=== PATIENT | female | born 1970 | race Caucasian/White ===

== ENCOUNTER → 2017-05-09 | Outpatient (CLI) | payer MEDICAID | LOC: CIMAGING 14:50 | DX: Z12.31 Encounter for screening mammogram for malignant neoplasm of breast (principal) ==

== ENCOUNTER → 2017-07-07 | Outpatient (CLI) | payer MEDICAID | LOC: BRMIMAGING 08:44 | DX: N64.59 Other signs and symptoms in breast (principal) | CPT/HCPCS: 76641-PO ==

== ENCOUNTER 2017-07-25 09:01 | Inpatient (IN) | payer MEDICAID ==
[2017-07-25 10:02] LABS: PLATELET COUNT 299 10^3/uL (150-400)
--- NOTE | 2017-07-25 10:11 | EDPHY ---
H & P Stated Complaint: facial numbness ?paralysis r face/ noticed prob with eye last night Time Seen by Provider: 07/25/17 10:10 HPI/ROS: HPI: This is a 47-year-old female who presents with Chief Complaint: facial numbness ?paralysis r face/ noticed prob with eye last night Location: right face Quality: Numbness and questionable paralysis Duration: Since last night Signs and Symptoms: no fever, no nausea, no vomiting, + photophobia, no noise sensitivity, no neck stiffness, no ear pain, no tinnitus, no nasal congestion, no sinus pressure, no weakness, no radiation, no aura Timing: Acute, resolved Severity: Moderate Context: Patient has a history of insulin-dependent diabetes mellitus, hypertension presents with with complaints last night of right eye twitching and questionable eye drooping around 7:00 p.m. That last 1 hr and self resolved. Last night this was noticed by patient's . Patient reports that she felt tired yesterday. She then woke up this morning around 7:30 a.m. And felt like she had difficulty swallowing her smoothie. She then noticed her left eye was twitching and she had a left facial droop. Patient reports that her blood sugars this morning were I 50 around 6:30 a.m.. She moved to [place] last year. Patient reports that all of her symptoms resolved around 9 a.m. While in the emergency room she is denying headache but reports photophobia. No history of migraines. Denies fever/weakness/radiation. Ambulating without difficulty. LMP 1-2 weeks ago. Modifying Factors: None Comment: ROS: see HPI Constitutional: No fever, no chills, no weight loss Eyes: No blurred vision Respiratory: No shortness of breath, no cough Cardiovascular: No chest pain, no palpitations Gastrointestinal: No nausea, no vomiting, no diarrhea, no hematemesis, no blood in stool Genitourinary: No dysuria, no blood in urine Extremities: No myalgias, no edema Neurologic: No weakness, no numbness Skin: No rashes, no petechiae Hematologic: No bruising, no bleeding MEDICAL/SURGICAL/SOCIAL HISTORY: Medical history: Insulin-dependent diabetes mellitus, hypertension Surgical history: Denies Social history: Family history noncontributory. CONSTITUTIONAL: Well-appearing middle-aged female, awake and alert, no obvious distress HEENT: Atraumatic and normocephalic, PERRL, EOMI. Nares patent; no rhinorrhea; no nasal mucosal edema. Tympanic membranes clear. Oropharynx clear, no exudate and moist pink mucosa. Airway patent. No lymphadenopathy. No meningismus. No reproducible temporal tenderness. Able to swallow water without difficulty. Cardiovascular: Normal S1/S2, regular rate, regular rhythm, without murmur rub or gallop. PULMONARY/CHEST: Symmetrical and nontender. Clear to auscultation bilaterally. Good air movement. No accessory muscle usage. ABDOMEN: Soft, nondistended, nontender, no rebound, no guarding, no peritoneal signs, no masses or organomegaly. No CVAT. EXTREMITIES: 2/2 pulses, strength 5/5, no deformities, no clubbing, no cyanosis or edema. NEUROLOGICAL: no focal neuro deficits. GCS 15. Cranial nerves 2-12 grossly intact. Normal cerebellar exam. Normal [id number]. Normal [id number]. SKIN: Warm and dry, no erythema. no rash. Good capillary refill. Source: Patient Exam Limitations: No limitations - Personal History LMP (Females 10-55): 8-14 Days Ago Current Tetanus Diphtheria and Acellular Pertussis (TDAP): No - Medical/Surgical History Hx Asthma: No Hx Chronic Respiratory Disease: No Hx Diabetes: Yes Hx Cardiac Disease: No Hx Renal Disease: No Hx Cirrhosis: No Hx Alcoholism: No Hx HIV/AIDS: No Hx Splenectomy or Spleen Trauma: No Other PMH: diabetic/htn - Social History Smoking Status: Never smoked Constitutional: Initial Vital Signs Temperature (C) 36.6 C 07/25/17 09:11 Heart Rate 84 07/25/17 09:11 Respiratory Rate 18 07/25/17 09:11 Blood Pressure 165/103 H 07/25/17 09:11 O2 Sat (%) 97 07/25/17 09:11 O2 Delivery Mode Room Air Allergies/Adverse Reactions: unknown Allergy (Uncoded 07/25/17 09:05) Home Medications: Medication Instructions Recorded Lantus Solostar 07/25/17 Metformin HCl 07/25/17 Trajenta 07/25/17 Medical Decision Making - Diagnostics Imaging Results: Imaging Impressions Cervical Spine X-Ray 07/25/17 10:19 Impression: No source for pain identified. Head CT 07/25/17 10:19 Impression: 1. There is no acute intracranial abnormality identified on this unenhanced CT evaluation. 2. 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 Findings and recommendations were discussed with Marely Bustamante PA-C at 11:29, on . She indicated that the patient was going to be admitted for TIA like symptoms. ED Course/Re-evaluation: Labs, head CT scan ordered. Vitals reviewed upon arrival; elevated blood pressure noted. Not a tPA candidate due to symptoms starting last night at 7:00 p.m. 1130: Called by radiologist, Dr. Damon, reports that head CT scan shows no acute intracranial process. Does show choroidal fissure cyst in the median sylvian fissure; recommends MR for further evaluation. Cervical x-ray my read shows no acute fracture/significant degenerative changes Labs reviewed: WBC 9.9, ESR 34, H&H 12.2/37.2-microcytic type; serum glucose 209 1135: ED decision to consult for admission for TIA. Spoke with hospitalist coordinator kindly agrees to accept patient for admission and further care. Be given to Dr. Fernandez. Neurology consult. Spoke with Dr. Palm who recommends CTA head and neck prior to admission to the floor. 1345: Called by Radiology, Dr. Damon, who advised that CTA head and neck showed no acute process. Spoke with patient and at bedside. Updated them on all radiology results and plan of care. This patient was seen under the supervision of my secondary supervising physician. I evaluated care for this patient independently. Discussed this patient with Dr. Luna who did not see the patient. Differential Diagnosis: Differential diagnosis includes but is not limited to migraine, temporal arteritis, TIA, CVA, Cho's palsy. - Data Points Laboratory Results: Laboratory Results 07/25/17 09:50 07/25/17 09:50 07/25/17 07/25/17 07/25/17 09:50 09:50 09:50 WBC RBC Hgb Hct 37.2 % L % (38.0-47.0) MCV MCH MCHC RDW Plt Count MPV Neut % (Auto) Lymph % (Auto) Crisp % (Auto) Eos % (Auto) Baso % (Auto) Nucleat RBC Rel Count Absolute Neuts (auto) Absolute Lymphs (auto) Absolute Monos (auto) Absolute Eos (auto) Absolute Basos (auto) Absolute Nucleated RBC Immature Gran % Immature Gran # ESR 34 MM/HR H MM/HR (0-20) PT 13.0 SEC SEC (12.0-15.0) INR 0.96 (0.83-1.16) APTT 28.1 SEC SEC (23.0-38.0) Sodium 140 mEq/L mEq/L (135-145) Potassium 4.2 mEq/L mEq/L (3.5-5.2) Chloride 101 mEq/L mEq/L (97-110) Carbon Dioxide 25 mEq/l mEq/l (22-31) Anion Gap 14 mEq/L mEq/L (8-16) BUN 11 mg/dL mg/dL (7-23) Creatinine 0.4 mg/dL L mg/dL (0.6-1.0) Estimated GFR > 60 Glucose 209 mg/dL H mg/dL (70-100) Calcium 9.7 mg/dL mg/dL (8.5-10.4) 07/25/17 09:50 WBC 9.94 10^3/uL H 10^3/uL (3.80-9.50) RBC 4.81 10^6/uL 10^6/uL (4.18-5.33) Hgb 12.2 g/dL L g/dL (12.6-16.3) Hct 37.2 % L % (38.0-47.0) MCV 77.3 fL L fL (81.5-99.8) MCH 25.4 pg L pg (27.9-34.1) MCHC 32.8 g/dL g/dL (32.4-36.7) RDW 15.1 % % (11.5-15.2) Plt Count 299 10^3/uL 10^3/uL (150-400) MPV 10.4 fL fL (8.7-11.7) Neut % (Auto) 71.3 % % (39.3-74.2) Lymph % (Auto) 16.6 % % (15.0-45.0) Crisp % (Auto) 4.8 % % (4.5-13.0) Eos % (Auto) 6.5 % % (0.6-7.6) Baso % (Auto) 0.4 % % (0.3-1.7) Nucleat RBC Rel Count 0.0 % % (0.0-0.2) Absolute Neuts (auto) 7.08 10^3/uL H 10^3/uL (1.70-6.50) Absolute Lymphs (auto) 1.65 10^3/uL 10^3/uL (1.00-3.00) Absolute Monos (auto) 0.48 10^3/uL 10^3/uL (0.30-0.80) Absolute Eos (auto) 0.65 10^3/uL H 10^3/uL (0.03-0.40) Absolute Basos (auto) 0.04 10^3/uL 10^3/uL (0.02-0.10) Absolute Nucleated RBC 0.00 10^3/uL 10^3/uL (0-0.01) Immature Gran % 0.4 % % (0.0-1.1) Immature Gran # 0.04 10^3/uL 10^3/uL (0.00-0.10) ESR PT INR APTT Sodium Potassium Chloride Carbon Dioxide Anion Gap BUN Creatinine Estimated GFR Glucose Calcium Medications Given: Discontinued Medications Morphine Sulfate (Morphine) 2 mg IVP ONCE ONE Stop: 07/25/17 12:09 Last Admin: 07/25/17 13:04 Dose: Not Given Departure - Departure Disposition: [facility] Clinical Impression: Cyst, fissural, IDDM (insulin dependent diabetes mellitus), Essential hypertension TIA (transient ischemic attack) Qualifiers: Transient cerebral ischemia type: unspecified Qualified Code(s): G45.9 - Transient cerebral ischemic attack, unspecified Condition: Fair
[2017-07-25 11:03] LABS: INR 0.96 (0.83-1.16)
[2017-07-25] MEDS ORDERED: IOPAMIDOL (ISOVUE 370) 100 ML BTL IV ONE (12:00)
[2017-07-25] MEDS ORDERED: ONDANSETRON 4 MG/2 ML VIAL IVP PRN (14:13)
[2017-07-25] MEDS ORDERED: ONDANSETRON DISINTEGRATING 4 MG TAB PO PRN (14:13)
[2017-07-25] MEDS ORDERED: KETOROLAC 30 MG/1 ML SDV ONE (14:16)
[2017-07-25] MEDS ORDERED: KETOROLAC 30 MG/1 ML SDV IVP ONE (14:16)
[2017-07-25] MEDS: D5W 1/2 NS 1,000 ML IV SCH (15:30)
[2017-07-25] MEDS ORDERED: HYDROmorphONE/DILAUDID 1 MG/ML INJ IVP PRN (15:59)
[2017-07-25] MEDS ORDERED: HYDROmorphONE/DILAUDID 2 MG TAB PO PRN (15:59)
[2017-07-25] MEDS ORDERED: IBUPROFEN 600 MG TAB PO PRN (16:00)
[2017-07-25] MEDS ORDERED: LIDOCAINE 1% 300 MG/30 ML SDV ONE (16:28)
--- NOTE | 2017-07-25 17:10 | PDGENHP ---
History and Physical - Chief Complaint Acute paresis - History of Present Illness PCP: Dr. Wilks HPI: 47 yo F p/w acute paresis characterized as R side facial palsy assoc w/ left facial painful paresthesia, subjective left upper extremity and left lower extremity paresthesia, dysphagia. Patient reports that approximately 2 weeks ago she began experiencing bilateral lower extremity paresis which was exacerbated on attempts to stand, getting out of the car, getting out of bed. She reports that this was associated with generalized fatigue as well as anterior sore throat. She reports that the symptoms persisted, and then on the evening prior to this presentation, her noticed that the right side of her mouth appeared to be weak as well as her left eyelid. She began experiencing headache located in the right posterior occiput and began experiencing some photophobia. She also had some reported twitching in that left eyelid. On the morning of this presentation, the patient awoke and around 7:30 a.m. She was experiencing the aforementioned symptoms, and she reports that she was having some difficulty swallowing her morning smoothie. She took her Synthroid, but felt like she was unable to take her other oral medications. She otherwise denies any fevers or chills, denies any neck stiffness, denies any cough or shortness of breath. She denies that these symptoms have ever been experienced in the past, outside of the past 2 weeks. History Information - Allergies/Home Medication List Allergies/Adverse Reactions: unknown Allergy (Uncoded 07/25/17 09:05) Home Medications: Acetaminophen [Tylenol 325mg (*)] 325 mg PO Q6 PRN 07/25/17 [Last Taken 07/23/17 ] Atorvastatin Calcium [Lipitor 10 mg (*)] 10 mg PO HS 07/25/17 [Last Taken ] Insulin Glargine [Lantus 100 UNITS/ML (*)] 42 units SC HS 07/25/17 [Last Taken 07/24/17] Linagliptin [Tradjenta] 5 mg PO DAILY 07/25/17 [Last Taken 07/25/17] Metoprolol Succinate Xr [Toprol Xl 25 mg (*)] 25 mg PO DAILY 07/25/17 [Last Taken 07/25/17] Tobramycin 0.3% [Tobrex 0.3% opht drops (*)] 1 drops OP Q4 07/25/17 [Last Taken Unknown] metFORMIN HCL [Glucophage 1000 mg] 1,000 mg PO BIDMEAL 07/25/17 [Last Taken ] I have personally reviewed and updated: family history, medical history, social history, surgical history - Past Medical History diabetes type 2, hypertension Additional medical history: Hypothyroidism - Surgical History Additional surgical history: Left ankle surgery - Family History Additional family history: No family history of any neurologic disorders, no family history of thymoma, no family history of meningitis or encephalitis - Social History Smoking Status: Never smoked Alcohol Use: None Drug Use: None Additional social history: She reports she is normally active in her ADLs, with recent reduction in exercise tolerance secondary to generalized fatigue over the past 2 weeks Review of Systems Review of Systems: ROS: 10pt was reviewed & negative except for what was stated in HPI & below Constitutional: Reports: weakness EENMT: Reports: sore throat, other (Dysphagia) Neurological: Reports: headache, other (Left-sided paresthesias, left facial paresthesia, right facial paresis) Physical Exam Physical Exam: Temp Pulse Resp BP Pulse Ox 37.0 C 80 19 154/84 H 95 07/25/17 14:28 07/25/17 14:28 07/25/17 14:28 07/25/17 14:28 07/25/17 14:28 Constitutional: no apparent distress, uncomfortable, No not in pain (Moderate left face) Eyes: PERRL, EOMI (But slow), No scleral injection Ears, Nose, Mouth, Throat: moist mucous membranes, hearing normal, ears appear normal, no oral mucosal ulcers Cardiovascular: regular rate and rhythym, no murmur, rub, or gallop, No edema Respiratory: no respiratory distress, no rales or rhonchi, clear to auscultation Gastrointestinal: normoactive bowel sounds, soft, non-tender abdomen, no palpable masses Skin: No abrasion, No rash Musculoskeletal: other (No meningismus, full range of motion of the neck) Neurologic: AAOx3, weakness (Right mouth palsy), CN II-XII Intact, No sensation intact bilaterally (Left upper and left lower extremity subjective paresthesias , left facial paresthesia) Psychiatric: not encephalopathic, anxious, No agitated Lab Data & Imaging Review 07/25/17 09:50 07/25/17 09:50 WBC 9.94 10^3/uL (3.80-9.50) H 07/25/17 09:50 RBC 4.81 10^6/uL (4.18-5.33) 07/25/17 09:50 Hgb 12.2 g/dL (12.6-16.3) L 07/25/17 09:50 Hct 37.2 % (38.0-47.0) L 07/25/17 09:50 MCV 77.3 fL (81.5-99.8) L 07/25/17 09:50 MCH 25.4 pg (27.9-34.1) L 07/25/17 09:50 MCHC 32.8 g/dL (32.4-36.7) 07/25/17 09:50 RDW 15.1 % (11.5-15.2) 07/25/17 09:50 Plt Count 299 10^3/uL (150-400) 07/25/17 09:50 MPV 10.4 fL (8.7-11.7) 07/25/17 09:50 Neut % (Auto) 71.3 % (39.3-74.2) 07/25/17 09:50 Lymph % (Auto) 16.6 % (15.0-45.0) 07/25/17 09:50 Pickett % (Auto) 4.8 % (4.5-13.0) 07/25/17 09:50 Eos % (Auto) 6.5 % (0.6-7.6) 07/25/17 09:50 Baso % (Auto) 0.4 % (0.3-1.7) 07/25/17 09:50 Nucleat RBC Rel Count 0.0 % (0.0-0.2) 07/25/17 09:50 Absolute Neuts (auto) 7.08 10^3/uL (1.70-6.50) H 07/25/17 09:50 Absolute Lymphs (auto) 1.65 10^3/uL (1.00-3.00) 07/25/17 09:50 Absolute Monos (auto) 0.48 10^3/uL (0.30-0.80) 07/25/17 09:50 Absolute Eos (auto) 0.65 10^3/uL (0.03-0.40) H 07/25/17 09:50 Absolute Basos (auto) 0.04 10^3/uL (0.02-0.10) 07/25/17 09:50 Absolute Nucleated RBC 0.00 10^3/uL (0-0.01) 07/25/17 09:50 Immature Gran % 0.4 % (0.0-1.1) 07/25/17 09:50 Immature Gran # 0.04 10^3/uL (0.00-0.10) 07/25/17 09:50 ESR 34 MM/HR (0-20) H 07/25/17 09:50 PT 13.0 SEC (12.0-15.0) 07/25/17 09:50 INR 0.96 (0.83-1.16) 07/25/17 09:50 APTT 28.1 SEC (23.0-38.0) 07/25/17 09:50 Sodium 140 mEq/L (135-145) 07/25/17 09:50 Potassium 4.2 mEq/L (3.5-5.2) 07/25/17 09:50 Chloride 101 mEq/L (97-110) 07/25/17 09:50 Carbon Dioxide 25 mEq/l (22-31) 07/25/17 09:50 Anion Gap 14 mEq/L (8-16) 07/25/17 09:50 BUN 11 mg/dL (7-23) 07/25/17 09:50 Creatinine 0.4 mg/dL (0.6-1.0) L 07/25/17 09:50 Estimated GFR > 60 07/25/17 09:50 Glucose 209 mg/dL (70-100) H 07/25/17 09:50 Calcium 9.7 mg/dL (8.5-10.4) 07/25/17 09:50 Visualized and Interpreted imaging results: Yes Interpretation: Head CT demonstrating some insist, no intracranial hemorrhage Assessment & Plan Assessment: 47-year-old female presents with acute paresthesias and paresis 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 Acute, with multifocal paresthesias and paresis, ascending, progressing into bulbar symptoms with dysphagia -discussed with Dr. Rodriguez Palm, neurology consultation appreciated, he and I both concern for any atypical Guillain-Lafayette presentation with ascending symptoms, progressing up to the bulbar area, placing the patient at risk for respiratory compromise -will rule out meningeal encephalitis with lumbar puncture, sending CSF for HSV and VZV -will evaluate brain MRI with and without contrast to rule out CVA, rule out any brain mass -will get lumbar spine MRI given the patient's recent back pain as well as lower extremity findings including absent reflexes -discussed with ICU charge nurse and respiratory therapist, will place the patient step-down unit, close monitoring, q.1 hour negative inspiratory force monitoring tonight -will give the patient IVIG -patient is high risk for worsening neurologic status and potential intubation 2. Diabetes mellitus type 2. Hyperglycemia on presentation, the patient requires swallow evaluation prior to dye order, will hold diabetic treatment until she is able to swallow 3. Hypertension. Chronic, continue patient's home medications once able to take p.o. Diet. NPO until swallow eval, then diabetic thereafter Prophylaxis. High risk patient given weakness and immobility, Lovenox for Code. Full Disposition. Anticipated discharge uncertain this time, anticipated length stay is greater than 48 hr warranting inpatient admission status for acutely worsening suspected Guillain-Lafayette syndrome, placing patient at high risk for worsening morbidity and/or mortality with critical illness secondary to evolving neurologic symptoms and potential respiratory compromise. Specifically addressing the issue, spent 60 min of critical care time spent with this patient at bedside, coordinating care with Dr. Palm, ICU, respiratory therapy.
[2017-07-25] MEDS ORDERED: D50W 25 GM/50 ML SYR IVP PRN (17:18)
[2017-07-25] MEDS ORDERED: NS 1,000 ML IV SCH (17:30)
--- NOTE | 2017-07-25 17:43 | PDMN ---
Medical Necessity Medical necessity: C/M review: est. > 2 MN LOS for eval and TX of acute possible Guillan-Davenport syndrome with multifocal paresthesias and paresis, ascending, progressing in to bulbar symptoms and dysphagia, patient is high risk for worsening neurologic status and potential intubation, requiring neurology consult, planned lumbar puncture - sending CSF for HSV and VZV, brain MRI, lumbar spine MRI, Dietary consult, Case Management consult, ongoing IVIG, IV fluids, close monitoring, Q 1 hr. inspiratory force monitoring, cardiac monitoring, pulse oximetry, acute inpt PT/OT/ST in SDU, comorbid type 2 diabetes , hypertension per H/P.
[2017-07-25] MEDS ORDERED: metFORMIN HCL 500 MG TAB PO SCH (18:00)
[2017-07-25] MEDS ORDERED: NON-FORMULARY NEW DRUG (Metformin Hcl [Glucophage 1000 Mg] 1,000 MG) PO SCH (18:00)
--- NOTE | 2017-07-25 18:47 | GCON ---
[f rep st] CONSULTATION DATE OF CONSULTATION: 07/25/2017 REFERRING PHYSICIAN: Dhruv Brooks MD CHIEF COMPLAINT: Multiple neurologic symptoms. HISTORY OF PRESENT ILLNESS: The patient is a very pleasant 47-year-old lady who has a past medical history of diabetes, thyroid problems, and hypertension. On July 14, she had unexplained low back pain, and began with weakness in her lower extremities that has been progressive. Then 2 days ago she began having right-sided facial weakness and then left-sided facial tingling, which brought her to the ED. She was evaluated with a head CT without contrast, which showed a likely benign finding of a left sylvian fissure choroidal fissure cyst. Otherwise, no acute abnormality. She had a CTA of the head and neck as well, which showed no acute findings. There is no significant stenosis in her internal carotid arteries or vertebral arteries. Intracranial circulation is negative. She has had no recent illnesses that she knows of. No tick bites. No animal bites. No recent illnesses or other toxic exposures that she is aware of. She was in her usual state of health. She did have also sensations in the back of her throat this morning with problems swallowing. No shortness of air that she reports or dyspnea. No orthopnea. REVIEW OF SYSTEMS: A review of systems was done including a 10-point review which was only pertinent to the HPI. For past medical history, social history, family history, home medications, and allergies, please see Dr. Brooks's history and physical dated July 25, 2017. PHYSICAL EXAMINATION: VITAL SIGNS: Blood pressure is elevated at 154/84, temperature 36.6, heart rate 70s. O2 saturation is 97% on room air. GENERAL: The patient is pleasant in no acute distress at baseline, just resting comfortably on room air. She has no dyspnea with walking. She had no shortness of air either. On higher mental function exam, she is awake and alert , lucid. No aphasia. On cranial nerve exam, she has a lower motor neuron 7th nerve weakness on the right. On the left, she has some tingling and numbness in the 5th nerve trigeminal nerve distribution. Tongue is midline. Extraocular movements are full. Pupils are reactive bilaterally and symmetric. On motor exam, she does not have any weakness with formal testing of each muscle, but does have some giveaway weakness due to pain in her back, mainly in the low back. She is areflexic throughout. Toes are mute bilaterally. Coordination is normal. Gait is slow, but nonataxic at this point. IMPRESSION AND PLAN: 1. Low back pain. 2. Areflexia. 3. Cranial nerve deficits. The patient is presenting with a constellation of neurological signs and symptoms presenting in a subacute fashion over the last ~ 2 weeks. These symptoms and signs are progressive. This subacute course is certainly could be consistent with an inflammatory process. She does not have any signs and symptoms of infection at this point. Her white count is 9.94. She is afebrile. She denies any sick contacts, animal exposure, insect bites, etc. Guillain-Lockhart syndrome is on the differential diagnosis. We discussed at length. Other differential diagnoses such as cerebrovascular disease / multifocal strokes, atypical Lyme disease, rabies, other infectious process or inflammatory disorders were discussed. She has no personal history of cancer to suggest paraneoplastic syndromes. As she is having dysphagia this morning, I am concerned about potential respiratory failure in the setting of possible Guillain-Lockhart syndrome. We are going to transfer her to the intensive care unit for close respiratory monitoring. We can monitor her forced vital capacity, her expiratory and inspiratory pressure -- per respiratory therapy parameters q.1 hour. If they meet threshold for intubation, she will then need intubation for impending respiratory failure, if that were to occur. We will check IgA level, sedimentation rate, CK, myasthenia gravis panel, MRI brain with without contrast , lumbar spine MRI with and without contrast. We will check a lumbar puncture to see if she has elevated protein with relatively normal cells to fit with acute inflammatory demyelinating polyneuropathy/Guillain-Lockhart syndrome. Because the suspicion is fairly high at this point, and she is progressing, we will go ahead and initiate therapy with IVIG. I did herb counselor the patient on potential risks, benefits, alternatives of IVIG, including hyperviscosity syndrome including stroke, heart attack, renal failure and anaphylaxis (as her IgA status is unknown now). She will be hydrated and be given premedications. She has no known allergies that she knows of. We will give her the standard IVIG dosing for Guillain- Lockhart syndrome of 0.4 g/kg per day for 5 days. We can discontinue this medication if an alternative diagnosis becomes obvious over the course of her hospitalization. She will be watched closely in ICU for any respiratory, autonomic, general neurologic changes or compromise. We will follow along closely. DVT, GI prophylaxis discussed with hospital medicine. We also discussed monitoring of respiratory functions, cardiovascular and autonomic function. Please do not hesitate to call with any change in neurologic status with this patient. We appreciate the consultation. We will follow up on all of the above. seventy total minutes of floor time and reviewing the patient's clinical history, neurologic exam, inpatient records, coordination of care with other providers. /[id number]/MODL MTDD
[2017-07-25] MEDS: INSULIN REGULAR HUMAN 100 UNIT/ML UNIT SC SCH ×2 (20:10→23:51)
[2017-07-25] MEDS: KETOROLAC 30 MG/1 ML SDV IVP PRN (20:20)
[2017-07-25] MEDS ORDERED: INSULIN GLARGINE 42 UNIT SC SCH (21:00)
[2017-07-25] MEDS ORDERED: INSULIN GLARGINE 100 UNITS/ML UNIT SC SCH (21:00)
[2017-07-25] MEDS ORDERED: GADOBUTROL 10 ML VIAL IVP ONE (21:14)
[2017-07-25] MEDS: ATORVASTATIN CALCIUM 10 MG TAB PO SCH (22:13)
[2017-07-25] MEDS: diphenhydrAMINE 50 MG CAP PO SCH (22:13)
[2017-07-25] MEDS: IMMUNE GLOBULIN 20 GM/200 ML VIAL IV SCH (22:13)
[2017-07-25] MEDS: ACETAMINOPHEN 325 MG TAB PO SCH (22:13)
[2017-07-25] MEDS: GABAPENTIN 100 MG CAP PO SCH ×2 (22:13→22:36)
[2017-07-25] MEDS: IMMUNE GLOBULIN 5 GM/50 ML VIAL IV SCH (22:14)
[2017-07-25] MEDS: IMMUNE GLOBULIN 10 GM/100 ML VIAL IV SCH (22:14)
[2017-07-26] MEDS: TOBRAMYCIN 0.3% 5 ML OPHT.BTL OP SCH ×8 (01:05→21:36)
[2017-07-26] MEDS: KETOROLAC 30 MG/1 ML SDV IVP PRN ×2 (02:50→14:15)
[2017-07-26 05:25] LABS: PLATELET COUNT 260 10^3/uL (150-400)
[2017-07-26] MEDS: INSULIN REGULAR HUMAN 100 UNIT/ML UNIT SC SCH ×4 (08:30→21:35)
[2017-07-26] MEDS ORDERED: (Linagliptin [Tradjenta] 5 MG) PO SCH (09:00)
[2017-07-26] MEDS ORDERED: METOPROLOL SUCCINATE XR 25 MG TAB PO SCH (09:00)
[2017-07-26] MEDS: diphenhydrAMINE 50 MG CAP PO SCH (09:17)
[2017-07-26] MEDS: ACETAMINOPHEN 325 MG TAB PO SCH (09:17)
[2017-07-26] MEDS: GABAPENTIN 100 MG CAP PO SCH (09:17)
[2017-07-26] MEDS ORDERED: ACETAMINOPHEN 650 MG SUPP PR SCH (09:45)
[2017-07-26] MEDS ORDERED: HYDROmorphone HCL/NS 0.5 MG/ML SYR IVP PRN (10:25)
[2017-07-26] MEDS: D5W 1/2 NS 1,000 ML IV SCH (10:26)
[2017-07-26] MEDS: ENOXAPARIN 40 MG/0.4 ML SYR SC SCH (10:41)
[2017-07-26] MEDS: IMMUNE GLOBULIN 20 GM/200 ML VIAL IV SCH (10:47)
[2017-07-26] MEDS: IMMUNE GLOBULIN 5 GM/50 ML VIAL IV SCH (11:03)
[2017-07-26] MEDS: IMMUNE GLOBULIN 10 GM/100 ML VIAL IV SCH (11:03)
--- NOTE | 2017-07-26 11:49 | GCON ---
[f rep st] CONSULTATION CRITICAL CARE CONSULTATION DATE OF CONSULTATION: 07/26/2017 HISTORY OF PRESENT ILLNESS: This patient is a 47-year-old female with a history of diabetes, hyperli pidemia, and hypertension, who was admitted yesterday with concerns for Guillain-[place] syndrome. She has a fairly complicated story of pain issues, some of which having occurred intermittently over an unclear period of time. A couple weeks ago she was complaining of lower extremity pain, which she travis s had intermittently and is unable to walk. She described some sciatica-type symptoms, but no clear paresthesias at that time. She started having worsening pain, went to a chiropractor, and that got b chata and resolved. Then, in the last few days, she said she started having right upper extremity pa in, only sort of in her elbow to her proximal wrist, but not in her fingertips. She also was having post-auricular pain behind her right ear that was nonspecific. She said it was sharp at 1st and then more diffuse and dull. In any case, this was intermittent. On the of admission, she was having matt e dysphagia and noticed a facial droop, she said on the left, and came to the hospital with those com plaints. She was seen in the emergency department and also by Internal Medicine as well as Neurology . There were some concerns about Guillain-Mil[place] syndrome, so she was given a dose of IV IG at that t nraa. Today she says her symptoms are essentially unchanged, and her workup has been nondiagnostic up to this point. REVIEW OF SYSTEMS: Otherwise negative. PAST MEDICAL HISTORY: Includes hyperlipidemia, hypothyroidism, diabetes, and hypertension. PAST SURGICAL HISTORY: Includes remote left ankle surgery. MEDICATIONS: At this time include Lipitor, Benadryl, Lovenox Neurontin, Dilaudid p.r.n., Motrin p.r. n., IV IG, insulin sliding scale, Toradol, metoprolol, and tobramycin drops. PHYSICAL EXAMINATION: VITAL SIGNS: She has been afebrile. Blood pressure 148/73, heart rate 76, re spirations 20, oxygen saturation 96% in room air. CONSTITUTIONAL: Somewhat anxious but able to spea k in full sentences without using accessory muscles for breathing. HEENT: Pupils equally round and reactive to light, anicteric, and noninjected. Extraocular movements were intact and normal. No nys tagmus. Mucous membranes moist without erythema or exudate. NECK: Supple, without adenopathy or ju gular vein distention. LUNGS: Breath sounds clear to auscultation bilaterally without wheezes, rubs , or rales. HEART: Regular rate and rhythm and rhythm without obvious murmur. ABDOMEN: Soft, nont anette, nondistended without hepatosplenomegaly. EXTREMITIES: No clubbing, cyanosis, or edema. She did appear to be weaker on the left than the right in both upper and lower extremities in the nature of about 3 to 4+ strength on the left and 5/5 on the right. She did appear to have a right-sided fac ial droop, particularly while smiling, but no other obvious cranial nerve abnormalities. SKIN: Othe rwise warm and dry, without evidence of rash. OBJECTIVE DATA: Includes an MRI of her brain (which shows an area of atypical demyelination, an old lacunar infarct, and a tiny schwannoma) and an LP that shows no evidence of meningitis at this time. Her white count was 9.9 when she arrived and is 8.2 now. Hematocrit is 34. Platelets were normal. Basic metabolic panel was normal. Hemoglobin A1c is pending. TSH was 0.402. Multiple other labs a re pending. ASSESSMENT AND PLAN: 1. Acute facial droop, which sounds more consistent with stroke (in a patient who is at risk for vas cular disease) than Guillain-Milroy. Would certainly defer to our neurologic colleagues whose experti se weighed the risks and benefits of IV IG, with which I agree, so she will continue that for now unt il some of her other labs are done. She should continue to work with PT/OT and have a swallow study. Her negative inspiratory force on multiple testing has been at least -30. We can probably switch t hat to daily since she denies any shortness of breath and is in room air at this time. We will [place] to monitor her closely for any progression of disease. 2. Diabetes. As long as she is n.p.o., she should get only half of her NPH, unless she resumes a no rmal diet after her study, in which case she can take her normal dose. Otherwise, will keep her on a sliding scale moving forward. /[id number]/MODL
--- NOTE | 2017-07-26 12:50 | HOSPPROG ---
Hospitalist Progress Note Assessment/Plan: 47-year-old female new to my care 07/26 presents with right facial weakness as well as subacute generalized weakness #weakness unclear diagnosis, but agree with treating for possible Guillain- [place] syndrome. -case discussed with Dr. Rodriguez Palm continue workup and IVIG -change to SDU status # microcytic anemia -will send iron studies since this could potentially be a cause of her generalized weakness -monitor for bleeding and repeat CBC in the morning # suppressed TSH -no obvious physical exam findings consistent with thyrotoxicosis or Graves disease. Will send free T3 and T4 levels as well as a thyroid stimulating immunoglobulin #. Diabetes mellitus type 2. Hyperglycemia on presentation, the patient requires swallow evaluation prior to dye order, will hold diabetic treatment until she is able to swallow #. Hypertension. Chronic, continue patient's home medications once able to take p.o. Diet. NPO until swallow eval, then diabetic thereafter Prophylaxis. High risk patient given weakness and immobility, Lovenox for Code. Full Disposition. Continue inpatient care given unclear diagnosis and persistent weakness Subjective: Patient continues to have generalized weakness. She feels worse today. She denies any shortness of breath. Objective: Vital Signs Temp Pulse Resp BP Pulse Ox 36.8 C 78 18 143/76 H 95 07/26/17 12:00 07/26/17 12:00 07/26/17 12:00 07/26/17 12:00 07/26/17 12:00 Microbiology 07/25/17 18:30 Respiratory Panel (PCR) - Final Nasal, Sinus - Swab Human Rhinovirus/Enterovirus Laboratory Results 07/26/17 05:00 07/26/17 05:00 07/25/17 07/26/17 07/27/17 05:59 05:59 05:59 Intake Total 871 Output Total 350 Balance 521 PT 13.0 SEC (12.0-15.0) 07/25/17 09:50 INR 0.96 (0.83-1.16) 07/25/17 09:50 - Physical Exam Constitutional: no apparent distress, appears nourished, not in pain Cardiovascular: regular rate and rhythym, no murmur, rub, or gallop Respiratory: no respiratory distress, no rales or rhonchi, clear to auscultation Neurologic: AAOx3, CN II-XII Intact, facial droop (Right side including the forehead), other (DTRs diminished at the patella and Achilles) Psychiatric: interacting appropriately, not anxious, not encephalopathic, thought process linear ICD10 Worksheet Patient Problems: Problems Problem Status Onset Cyst, fissural Acute Essential hypertension Acute IDDM (insulin dependent diabetes mellitus) Acute TIA (transient ischemic attack) Acute
--- NOTE | 2017-07-26 13:20 | NEUROPROG ---
Assessment: 1. Right facial droop, lower motor neuron distribution 2. Low back pain with subjective lower extremity weakness 3. Areflexia MRI brain does not show any acute infarcts. There may be a very tiny schwannoma on the right. Not clear. No clear-cut abnormalities to explain the constellation of signs and symptoms on MRI brain . MRI lumbar spine did not show any enhancing lesions CSF exam was essentially normal. No elevated white cells. Normal protein Labs are coming back normal or negative. Many labs are pending. Right facial droop seems more prominent this morning. She passed swallow study The differential diagnosis still includes AIDP, other possibilities include viral syndrome with Cho's palsy and diffuse myalgias. 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 Going forward please discontinue all opiate pain medications for her neuropathic pain. I will start gabapentin 300 mg p. O. Three times daily as she passed her swallow test. 2. We will continue close autonomic, cardiovascular and Respiratory monitoring for any impending respiratory failure 3. Continue GI and DVT prophylaxis 4. We will complete IVIG course for 5 days at this point as we have no other alternate diagnosis to definitively explain the entire clinical picture. Today is 2/5 of IVIG The neurology service will continue to closely follow this patient. 35 total minutes on the floor reviewing interim labs, counseling the patient and coordination of care Subjective: Neuropathic pain behind right ear Objective: Vital Signs Temp Pulse Resp BP Pulse Ox 36.8 C 78 18 143/76 H 95 07/26/17 12:00 07/26/17 12:00 07/26/17 12:00 07/26/17 12:00 07/26/17 12:00 Microbiology 07/25/17 18:30 Respiratory Panel (PCR) - Final Nasal, Sinus - Swab Human Rhinovirus/Enterovirus Laboratory Results 07/26/17 05:00 07/26/17 05:00 07/25/17 07/26/17 07/27/17 05:59 05:59 05:59 Intake Total 871 Output Total 350 Balance 521 PT 13.0 SEC (12.0-15.0) 07/25/17 09:50 INR 0.96 (0.83-1.16) 07/25/17 09:50 Awake and alert She passed a swallow study in my presence Right facial weakness in upper and lower face There was some 1+ reflex present in the brachioradialis bilaterally otherwise she is areflexic Allergies/Adverse Reactions: unknown Allergy (Uncoded 07/25/17 09:05)
--- NOTE | 2017-07-26 15:20 | ASMTCMCOM ---
CM Note CM Note Notes: Pt has been admitted with possible Guillain [place] syndrome and started on IVIG. PT pending, OT recommending Inpt rehab at this time. She passed swallow eval today. Pt lives with her and 9 yo. CM will follow for any d/c needs. Date Signed: 07/26/2017 03:19 PM Electronically Signed By:DUKE Cervantes
[2017-07-26] MEDS: GABAPENTIN 300 MG CAP PO SCH ×2 (16:36→21:35)
[2017-07-26] MEDS: METOPROLOL SUCCINATE XR 25 MG TAB PO SCH (17:08)
[2017-07-26] MEDS: ATORVASTATIN CALCIUM 10 MG TAB PO SCH (21:35)
[2017-07-26] MEDS: INSULIN GLARGINE 100 UNITS/ML UNIT SC SCH (21:35)
[2017-07-27] MEDS: TOBRAMYCIN 0.3% 5 ML OPHT.BTL OP SCH ×6 (02:10→21:32)
[2017-07-27] MEDS: KETOROLAC 30 MG/1 ML SDV IVP PRN ×3 (06:43→19:27)
[2017-07-27] MEDS: INSULIN REGULAR HUMAN 100 UNIT/ML UNIT SC SCH ×4 (07:36→21:31)
[2017-07-27] MEDS: LEVOTHYROXINE 125 MCG TAB PO SCH (08:21)
[2017-07-27] MEDS: METOPROLOL SUCCINATE XR 25 MG TAB PO SCH (08:22)
[2017-07-27] MEDS: GABAPENTIN 300 MG CAP PO SCH ×3 (08:22→21:31)
[2017-07-27] MEDS: ACETAMINOPHEN 325 MG TAB PO SCH (08:22)
[2017-07-27] MEDS: ENOXAPARIN 40 MG/0.4 ML SYR SC SCH (08:23)
[2017-07-27] MEDS: diphenhydrAMINE 50 MG CAP PO SCH (08:23)
[2017-07-27] MEDS: IMMUNE GLOBULIN 20 GM/200 ML VIAL IV SCH (08:34)
[2017-07-27] MEDS: IMMUNE GLOBULIN 10 GM/100 ML VIAL IV SCH (08:34)
[2017-07-27] MEDS: IMMUNE GLOBULIN 5 GM/50 ML VIAL IV SCH (08:35)
--- NOTE | 2017-07-27 09:45 | PDINTPN ---
[employer] Administrator Progress Note Assessment/Plan: Assessment/plan: 47 F admitted 07/25 with DM, HTN, HLD, c/o new onset facial droop in setting of confusing array of pain complaints and dysfunction without clear ascending paralysis, but enough to raise concerns about Guillan [place]. MRI negative for acute CVA; no TPA given. LP unremarkable for infection or elevated protein. Started IVIG with no immediate change, though she reported worsening facial droop 07/26. Bedside NIF has been > -30 on multiple measurements and no subjective dyspnea. * [place] palsy related to rhinovirus versus GB. Agree that benefit>risk in terms of GB treatment and will get 5 days as recommended by neurology. Largely supportive care and will monitor daily NIF for now * DM- maintaining glucose, HbA1c pending Subjective: feels her facial symptoms are worse today Objective: Vital Signs Temp Pulse Resp BP Pulse Ox 36.6 C 84 16 149/81 H 97 07/27/17 04:00 07/27/17 08:22 07/27/17 08:00 07/27/17 08:22 07/27/17 08:00 Laboratory Results 07/26/17 05:00 07/26/17 05:00 07/26/17 07/27/17 07/28/17 05:59 05:59 05:59 Intake Total 871 2592 Output Total 350 1500 400 Balance 521 1092 -400 PT 13.0 SEC (12.0-15.0) 07/25/17 09:50 INR 0.96 (0.83-1.16) 07/25/17 09:50 Physical Exam - Physical Exam General Appearance: WD/WN, alert, no apparent distress, obese EENT: PERRL/EOMI Neck: supple Respiratory: lungs clear, normal breath sounds, No respiratory distress, No accessory muscle use Cardiac/Chest: regular rate, rhythm, No edema Abdomen: non-tender, soft, No distended Skin: normal color, warm/dry, No cyanosis, No rash Lymphatic: no adenopathy Extremities: No pedal edema Neuro/Psych: alert, normal mood/affect, oriented x 3, abnormal twist maker II-XII ( RIGHT SIDED FACIAL PARESIS; MILD LUE/LLE WEAKNESS; NORMAL RUE/RLE) ICD10 Worksheet Patient Problems: Problems Problem Status Onset Cyst, fissural Acute Essential hypertension Acute IDDM (insulin dependent diabetes mellitus) Acute TIA (transient ischemic attack) Acute
--- NOTE | 2017-07-27 12:45 | HOSPPROG ---
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 -continue IVIG -consider transfer to med/surg if cleared by neurology #tearfulness ?depression which is denies by the patient -cont to monitor and consider SSRI if pt agreeable # microcytic anemia (no signs of bleeding nml iron studies) # suppressed TSH (iatrogenic) -recommend outpatient monitoring of thyroid replacement #. Diabetes mellitus type 2. -a1c pending -cont metformin and correctional insulin as ordered #. Hypertension. Chronic, continue patient's home medications once able to take p.o. Diet. ada Prophylaxis. High risk patient given weakness and immobility, Lovenox for Code. Full Disposition. Continue inpatient care given unclear diagnosis and persistent weakness Subjective: reports persistent facial weakness as well as generalized weakness. no fever. denies depression. has been sleeping and eating without problems. Objective: Vital Signs Temp Pulse Resp BP Pulse Ox 36.6 C 84 16 149/81 H 97 07/27/17 04:00 07/27/17 08:22 07/27/17 08:00 07/27/17 08:22 07/27/17 08:00 Laboratory Results 07/26/17 05:00 07/26/17 05:00 07/26/17 07/27/17 07/28/17 05:59 05:59 05:59 Intake Total 871 2592 240 Output Total 350 1500 800 Balance 521 1092 -560 PT 13.0 SEC (12.0-15.0) 07/25/17 09:50 INR 0.96 (0.83-1.16) 07/25/17 09:50 - Physical Exam Ears, Nose, Mouth, Throat: moist mucous membranes, hearing normal, ears appear normal, no oral mucosal ulcers Cardiovascular: regular rate and rhythym, no murmur, rub, or gallop Respiratory: no respiratory distress, no rales or rhonchi, clear to auscultation Gastrointestinal: normoactive bowel sounds, soft, non-tender abdomen, no palpable masses Neurologic: CN II-XII Intact (with the exception of cn 7 weakness unable to raise brow on right with associated rt facial droop. able to close left eye) Psychiatric: interacting appropriately, anxious, flat affect ICD10 Worksheet Patient Problems: Problems Problem Status Onset TIA (transient ischemic attack) Acute Cyst, fissural Acute IDDM (insulin dependent diabetes mellitus) Acute Essential hypertension Acute
--- NOTE | 2017-07-27 15:49 | NEUROPROG ---
Assessment: 1. Right facial weakness, lower motor neuron distribution 2. Low back pain with subjective lower extremity weakness 3. Areflexia MRI brain does not show any acute infarcts. There may be a very tiny schwannoma on the right. Not clear. No clear-cut abnormalities to explain the constellation of signs and symptoms on MRI brain . The MRI finding may be consistent with Cho's palsy rather than a schwannoma. MRI lumbar spine did not show any enhancing lesions CSF exam was essentially normal. No elevated white cells. Normal protein Labs are coming back normal or negative. Many labs are pending. The differential diagnosis still includes AIDP, other possibilities include viral syndrome with Cho's palsy and diffuse myalgias. 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 gabapentin 300 mg p. O. Three times daily 2. We will continue close autonomic, cardiovascular and Respiratory monitoring for any impending respiratory failure 3. Continue GI and DVT prophylaxis 4. We will complete IVIG course for 5 days at this point as we have no other alternate diagnosis to definitively explain the entire clinical picture. Today is 3/5 of IVIG 5. I will sign out this very pleasant patient to my colleague Dr. Olmos. 6. I will plan on seeing her as an outpatient in 3 months to repeat a brain MRI with and without contrast 7. If the end diagnosis best fits with typical Cho's palsy (not Guillain-[place] syndrome) - recommendations include eye care and outpatient ophthalmology follow -up. She was counseled today at length at regarding protecting her eye with eyedrops and the risk of corneal abrasion. 35 total minutes on the floor reviewing interim labs, counseling the patient and coordination of care Subjective: No new complaints Objective: Vital Signs Temp Pulse Resp BP Pulse Ox 36.6 C 84 16 149/81 H 97 07/27/17 04:00 07/27/17 12:15 07/27/17 08:00 07/27/17 12:15 07/27/17 12:15 Laboratory Results 07/26/17 05:00 07/26/17 05:00 07/26/17 07/27/17 07/28/17 05:59 05:59 05:59 Intake Total 871 2592 240 Output Total 350 1500 800 Balance 521 1092 -560 PT 13.0 SEC (12.0-15.0) 07/25/17 09:50 INR 0.96 (0.83-1.16) 07/25/17 09:50 Right facial weakness, lower motor neuron distribution, appears to be more prominent again I tested power in all 4 extremities today and could not find any weakness. She remains areflexic Allergies/Adverse Reactions: unknown Allergy (Uncoded 07/25/17 09:05)
[2017-07-27] MEDS: ACETAMINOPHEN 325 MG TAB PO PRN ×2 (18:16→22:14)
[2017-07-27] MEDS: ATORVASTATIN CALCIUM 10 MG TAB PO SCH (21:31)
[2017-07-27] MEDS: INSULIN GLARGINE 100 UNITS/ML UNIT SC SCH (21:31)
[2017-07-27] MEDS: DOCUSATE SODIUM 100 MG CAP PO SCH (21:31)
[2017-07-27] MEDS ORDERED: NITROGLYCERIN 0.4 MG BTL SL PRN (22:55)
[2017-07-27] MEDS ORDERED: LORazepam 1 MG TAB ONE (23:02)
[2017-07-27] MEDS: LORazepam 0.5 MG TAB PO PRN (23:09)
[2017-07-28] MEDS: TOBRAMYCIN 0.3% 5 ML OPHT.BTL OP SCH ×6 (02:19→22:16)
[2017-07-28] MEDS: KETOROLAC 30 MG/1 ML SDV IVP PRN ×3 (02:40→19:38)
[2017-07-28] MEDS: LEVOTHYROXINE 125 MCG TAB PO SCH (05:16)
[2017-07-28] MEDS: ACETAMINOPHEN 325 MG TAB PO PRN ×2 (06:26→21:36)
--- NOTE | 2017-07-28 08:57 | CPEKG ---
Heart Rate: 77 RR Interval: 779 P-R Interval: 144 QRSD Interval: 76 QT Interval: 396 QTC Interval: 449 P [place]: 55 QRS [place]: 54 T Wave [place]: 44 EKG Severity - BORDERLINE ECG - EKG Impression: SINUS RHYTHM EKG Impression: PROBABLE LEFT ATRIAL ABNORMALITY Electronically Signed By: Dhruv Freeman 28-Jul-2017 12:25:44
[2017-07-28] MEDS: INSULIN REGULAR HUMAN 100 UNIT/ML UNIT SC SCH ×4 (09:09→22:10)
[2017-07-28] MEDS: GABAPENTIN 300 MG CAP PO SCH ×3 (09:11→21:37)
[2017-07-28] MEDS: metFORMIN HCL 500 MG TAB PO SCH ×2 (09:12→18:21)
[2017-07-28] MEDS: DOCUSATE SODIUM 100 MG CAP PO SCH ×2 (09:12→21:35)
[2017-07-28] MEDS: METOPROLOL SUCCINATE XR 25 MG TAB PO SCH (09:13)
[2017-07-28] MEDS: ENOXAPARIN 40 MG/0.4 ML SYR SC SCH (09:13)
[2017-07-28] MEDS: diphenhydrAMINE 50 MG CAP PO SCH (09:14)
--- NOTE | 2017-07-28 09:33 | NEUROPROG ---
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 Rodriguez Schmitt neurology notes from 07/25/17, 07/26/17, and 07/27/17 for full details. Pt with 2 weeks prior to 07/25/17 of subjective sense of leg weakness, back pain, and right facial weakness. On exam she was noted on to be areflexic. 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 Spinal tap on 07/25/17 showed essentially normal CSF studies so patient give IVIG for 5 days to address symptoms of suspected AIDP. Pt seen on 07/28/17. Pt reported continued headache. She was placed on gabapentin which will hopefully improve the headache over time. Right facial weakness still present. Multiple labs pending still at this time. PT on day 4 5 of IVIG. 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 No evidence of enhancing lesions. - Assessment: 1. 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 On exam she was noted on to be areflexic. 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 Spinal tap on 07/25/17 showed essentially normal CSF studies so patient give IVIG for 5 days to address symptoms of suspected AIDP. DDx also includes right [place] Palsy, myasthenia gravis, or occult neurologic cause of symptoms. - 2. 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 Likely from small vessel disease given poorly controlled diabetes. Recommend TTE now and then long-term aspirin 81 mg qd and working closely with PCM to ensure blood pressure < 140/90, H1AC < 7.0, and LDL < 70. - 3. 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 Palm to reassess possible right schwannoma versus inflammation from [place] Palsy - 4. Diabetes - Recs: - Cont IVIG day - PT/OT consults to determine any long-term rehab needs, if none then patient requires no further inpatient neurologic treatment after completing IVIG - Agree with gabapentin for headache pain - F/U with Dr. Rodriguez Palm after hospital discharge - TTE given old stroke seen on brain MRI - Given old lacunar stroke seen on brain MRI on 07/25/17 recommend aspirin 81 mg qd and working closely with PCM to ensure blood pressure < 140/90, H1AC < 7.0, and LDL < 70 - Recommend outpatient routine repeat brain MRI w/ and w/o con by Dr. Palm to reassess possible right schwannoma versus inflammation from [place] Palsy - Labs pending: Ach Abs, IgA, CSF labs, etc - 35 min spent with patient, majority of time spent counseling on symptoms and suspected cause in addition to treatment recs. Objective: Vital Signs Temp Pulse Resp BP Pulse Ox 37 C 78 16 157/74 H 96 07/27/17 21:36 07/28/17 09:13 07/28/17 04:00 07/28/17 09:13 07/28/17 04:00 Laboratory Results 07/26/17 05:00 07/26/17 05:00 07/27/17 07/28/17 07/29/17 05:59 05:59 05:59 Intake Total 2592 1700 Output Total 1500 1000 Balance 1092 700 PT 13.0 SEC (12.0-15.0) 07/25/17 09:50 INR 0.96 (0.83-1.16) 07/25/17 09:50 Allergies/Adverse Reactions: unknown Allergy (Uncoded 07/25/17 09:05)
[2017-07-28] MEDS: ACETAMINOPHEN 325 MG TAB PO SCH ×2 (10:19→15:03)
--- NOTE | 2017-07-28 10:40 | CPEKG ---
Heart Rate: 92 RR Interval: 652 P-R Interval: 148 QRSD Interval: 78 QT Interval: 364 QTC Interval: 451 P [place]: 56 QRS [place]: 62 T Wave [place]: 31 EKG Severity - BORDERLINE ECG - EKG Impression: SINUS RHYTHM EKG Impression: BORDERLINE INFERIOR Q WAVES EKG Impression: BORDERLINE T WAVE ABNORMALITIES Electronically Signed By: Duane Soria 28-Jul-2017 11:58:42
[2017-07-28] MEDS: IMMUNE GLOBULIN 10 GM/100 ML VIAL IV SCH (10:45)
[2017-07-28] MEDS: IMMUNE GLOBULIN 5 GM/50 ML VIAL IV SCH (12:27)
[2017-07-28] MEDS: IMMUNE GLOBULIN 20 GM/200 ML VIAL IV SCH (12:27)
--- NOTE | 2017-07-28 13:29 | HOSPPROG ---
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 -continue to complete course IVIG #tearfulness ?depression which patient denies -cont to monitor and consider SSRI if pt agreeable #Headache possibly secondary to IVIG # microcytic anemia (no signs of bleeding nml iron studies) # suppressed TSH (iatrogenic) -recommend outpatient monitoring of thyroid replacement #. Diabetes mellitus type 2 (poor control a1c 9.8) -cont metformin and correctional insulin as ordered #. Hypertension. Chronic, continue patient's home medications once able to take p.o. Diet. ada Prophylaxis. High risk patient given weakness and immobility, Lovenox for Code. Full Disposition. Continue inpatient care given unclear diagnosis and persistent weakness Subjective: continues to report generalized weakness and headache. Denies depression. Denies shortness of breath. Objective: Vital Signs Temp Pulse Resp BP Pulse Ox 35.9 C L 73 19 140/75 H 94 07/28/17 11:44 07/28/17 11:44 07/28/17 11:44 07/28/17 11:44 07/28/17 11:44 Laboratory Results 07/26/17 05:00 07/26/17 05:00 07/27/17 07/28/17 07/29/17 05:59 05:59 05:59 Intake Total 2592 1700 Output Total 1500 1000 Balance 1092 700 PT 13.0 SEC (12.0-15.0) 07/25/17 09:50 INR 0.96 (0.83-1.16) 07/25/17 09:50 - Physical Exam Constitutional: no apparent distress, appears nourished, not in pain Ears, Nose, Mouth, Throat: moist mucous membranes, hearing normal, ears appear normal, no oral mucosal ulcers Cardiovascular: regular rate and rhythym, no murmur, rub, or gallop Respiratory: no respiratory distress, no rales or rhonchi, clear to auscultation Gastrointestinal: normoactive bowel sounds, soft, non-tender abdomen, no palpable masses Neurologic: facial droop (right side, says she can't open left eye but is able to open it) ICD10 Worksheet Patient Problems: Problems Problem Status Onset TIA (transient ischemic attack) Acute Cyst, fissural Acute IDDM (insulin dependent diabetes mellitus) Acute Essential hypertension Acute
--- NOTE | 2017-07-28 14:56 | ECHO ---
[email or web address] [address] [address] Main: [phone] Fax: Transthoracic Echocardiogram Name: MADYSON MENDOZA MR#: [id number] Study Date: 07/28/2017 Study Time: 11:00 AM Date of : 1970 Age: 47 year(s) Height: 165.1 cm (65 in.) Weight: 85.73 kg (189 lb.) BSA: 1.93 m2 Gender: Female Examination: Echo Indication: old stroke Image Quality: Adequate Contrast: Requested by: Jayro Olmos BP: 157 mmHg/74 mmHg Heart Rate: Rhythm: Normal sinus rhythm Indication: old stroke Procedure Staff Database Design Analyst: Hannah Aguillon [facility] Reading Physician: Danilo Rios MD Requesting Provider: Conclusions: Normal size left ventricle. No LV hypertrophy. Normal global systolic LV function. EF is 67 %. No regional wall motion abnormality. Normal diastolic LV function. Normal size right ventricle. Normal RV function. The left atrium is normal in size. The right atrium is normal in size. The mitral valve is normal in appearance and function. Trivial mitral valve regurgitation. No mitral stenosis is present. The aortic valve is tri-leaflet and functions normally. There is no aortic valve regurgitation. No aortic valve stenosis is present. The tricuspid valve is normal in appearance and function. Trivial tricuspid valve regurgitation. Pulmonary artery pressure is not obtained due to inadequate TR jet. The pulmonic valve is normal in appearance and function. There is no pulmonic regurgitation seen. The aorta is normal. Normal size aortic root measuring 2.7 cm. No pericardial effusion. There is a lipomatous intratrial septum with echo drop out in the region of the fossa ovalis. An intracardiac shunt is not identified as a cause of the patient's remote CVA. A DEANDRA or Definity contrast study could be performed if intracardiac shunt is strongly suspected. Measurements: Patient: MADYSON MENDOZA Study Date: 07/28/2017 Page 1 of 2 11:00 AM Chambers Valvular Assessment AV/MV Valvular Assessment TV/PV Normal Normal Normal Name Value Range Name Value Range Name Value Range Ao Padmini (MM): 2.7 cm (2.2 cm-3.7 AV Vmax: 1.45 m/s (1 m/s-1.7 PV Vmax: 1.25 m/s (0.6 m/s-0.9 cm) m/s) m/s) IVSd (2D): 0.9 cm (0.6 cm-1.1 AV maxP mmHg ( - ) PV PGmax: 6 mmHg ( - ) cm) LVOT Vmax: 1.03 m/s (0.7 m/s-1.1 LVDd (2D): 4.0 cm (3.9 cm-5.3 m/s) cm) MV E Vmax: 0.78 m/s ( - ) LVDs (2D): 2.8 cm (2.1 cm-4 MV A Vmax: 0.58 m/s ( - ) cm) MV E/A: 1.34 ( - ) LVPWd (2D): 0.9 cm ( - ) LVEF (BP): 67 % (>=55 %) RVDd(2D): 2.6 cm (1.9 cm-3.8 cmmm) Continued Measurements: Chambers Valvular Assessment AV/MV Name Value Name Value LADs: 3.2 cm MV DecTime: 190 m/s LADs Lon.1 cm MV E/E' Septal: 8.40 LA Area: 16.0 cm2 MV E/E' Lateral: 11.00 LA Volume: 39 ml LA Volume Index: 20.2 ml/m2 RA Area: 12.0 cm2 Findings: Left Ventricle: Normal size left ventricle. No LV hypertrophy. Normal global systolic LV function. EF is 67 %. No regional wall motion abnormality. Normal diastolic LV function. Right Ventricle: Normal size right ventricle. Normal RV function. Left Atrium: The left atrium is normal in size. Right Atrium: The right atrium is normal in size. Mitral Valve: The mitral valve is normal in appearance and function. Trivial mitral valve regurgitation. No mitral stenosis is present. Aortic Valve: The aortic valve is tri-leaflet and functions normally. There is no aortic valve regurgitation. No aortic valve stenosis is present. Tricuspid Valve: The tricuspid valve is normal in appearance and function. Trivial tricuspid valve regurgitation. Pulmonary artery pressure is not obtained due to inadequate TR jet. Pulmonic Valve: The pulmonic valve is normal in appearance and function. There is no pulmonic regurgitation seen. Aorta: The aorta is normal. Normal size aortic root measuring 2.7 cm. Pericardium: No pericardial effusion. (No Signature Object) Patient: MADYSON MENDOZA Study Date: 07/28/2017 Page 2 of 2 11:00 AM [id number]
[2017-07-28] MEDS: ATORVASTATIN CALCIUM 10 MG TAB PO SCH (21:37)
[2017-07-28] MEDS: INSULIN GLARGINE 100 UNITS/ML UNIT SC SCH (21:45)
[2017-07-28] MEDS: LORazepam 0.5 MG TAB PO PRN (22:10)
[2017-07-29] MEDS: TOBRAMYCIN 0.3% 5 ML OPHT.BTL OP SCH ×4 (02:27→18:32)
[2017-07-29] MEDS: ACETAMINOPHEN 325 MG TAB PO PRN (05:06)
[2017-07-29] MEDS: LEVOTHYROXINE 125 MCG TAB PO SCH (05:07)
[2017-07-29] MEDS: INSULIN REGULAR HUMAN 100 UNIT/ML UNIT SC SCH ×2 (08:19→12:16)
[2017-07-29] MEDS ORDERED: BISACODYL 10 MG SUPP PR SCH (09:00)
[2017-07-29] MEDS: IMMUNE GLOBULIN 10 GM/100 ML VIAL IV SCH (09:15)
[2017-07-29] MEDS: METOPROLOL SUCCINATE XR 25 MG TAB PO SCH (09:16)
[2017-07-29] MEDS: diphenhydrAMINE 50 MG CAP PO SCH (09:16)
[2017-07-29] MEDS: ENOXAPARIN 40 MG/0.4 ML SYR SC SCH (09:16)
[2017-07-29] MEDS: metFORMIN HCL 500 MG TAB PO SCH (09:17)
[2017-07-29] MEDS: GABAPENTIN 300 MG CAP PO SCH ×2 (09:17→18:32)
[2017-07-29] MEDS: DOCUSATE SODIUM 100 MG CAP PO SCH (09:17)
--- NOTE | 2017-07-29 09:44 | NEUROPROG ---
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 Rordiguez Schmitt neurology notes from 07/25/17, 07/26/17, and 07/27/17 for full details. Pt with 2 weeks prior to 07/25/17 of subjective sense of leg weakness, back pain, and right facial weakness. On exam she was noted on to be areflexic. 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 Spinal tap on 07/25/17 showed essentially normal CSF studies so patient give IVIG for 5 days to address symptoms of suspected AIDP. Pt seen on 07/28/17. Pt reported continued headache. She was placed on gabapentin which will hopefully improve the headache over time. Right facial weakness still present. Multiple labs pending still at this time. PT on day 4 of IVIG. - HPI: F/U 07/29/17. Pt on IVIG day 5 /5. No new complaints. Pt stable. TTE did not report a thrombus. 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 No evidence of enhancing lesions. 07/28/17- TTE: no thrombus reported - Assessment: 1. 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 On exam she was noted on to be areflexic. 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 Spinal tap on 07/25/17 showed essentially normal CSF studies so patient give IVIG for 5 days to address symptoms of suspected AIDP. DDx also includes right [place] Palsy, myasthenia gravis, or occult neurologic cause of symptoms. - 2. 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 TTE on 07/28/17 showed no thrombus. Likely from small vessel disease given poorly controlled diabetes. Recommend long-term aspirin 81 mg qd and working closely with PCM to ensure blood pressure < 140/90, H1AC < 7.0, and LDL < 70. - 3. 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 Palm to reassess possible right schwannoma versus inflammation from [place] Palsy - 4. Diabetes - Recs: - Cont IVIG day 5 - PT/OT consults to determine any long-term rehab needs, if none then patient requires no further inpatient neurological treatment after completing IVIG and can discharge from my perspective - Agree with gabapentin for headache pain, continue until f/u with Dr. Palm - F/U with Dr. Rodrgiuez Palm after hospital discharge - Given old lacunar stroke seen on brain MRI on 07/25/17 recommend aspirin 81 mg qd and working closely with PCM to ensure blood pressure < 140/90, H1AC < 7.0, and LDL < 70 - Recommend outpatient routine repeat brain MRI w/ and w/o con by Dr. Palm to reassess possible right schwannoma versus inflammation from [place] Palsy - Labs pending: Ach Abs, IgA, CSF labs, etc - 35 min spent with patient, majority of time spent counseling on symptoms and suspected cause in addition to treatment recs and additional prognosis. Objective: Vital Signs Temp Pulse Resp BP Pulse Ox 36.9 C 80 16 150/88 H 92 07/29/17 07:57 07/29/17 09:16 07/29/17 07:57 07/29/17 09:16 07/29/17 07:57 Laboratory Results 07/26/17 05:00 07/26/17 05:00 07/28/17 07/29/17 07/30/17 05:59 05:59 05:59 Intake Total 1700 275 Output Total 1000 2050 950 Balance 700 -1775 -950 PT 13.0 SEC (12.0-15.0) 07/25/17 09:50 INR 0.96 (0.83-1.16) 07/25/17 09:50 Allergies/Adverse Reactions: unknown Allergy (Uncoded 07/25/17 09:05)
[2017-07-29] MEDS ORDERED: SODIUM CL NASAL 45 ML BTL EACHNARE PRN (10:10)
[2017-07-29] MEDS: IMMUNE GLOBULIN 20 GM/200 ML VIAL IV SCH (10:47)
[2017-07-29] MEDS: IMMUNE GLOBULIN 5 GM/50 ML VIAL IV SCH (10:47)
--- NOTE | 2017-07-29 11:44 | ASMTCMCOM ---
CM Note CM Note Notes: Need Order for In-pt Rehab to eval. Recommendations: PT had been refused due to RUBI, OT = IN-pt Rehab, STP= out-pt Rehab. Patient has a young son and may want to return home. Transfer to [facility]. Date Signed: 07/29/2017 11:44 AM Electronically Signed By:Daksha Will LCSW
[2017-07-29 15:57] VITALS: BP 150/87
--- NOTE | 2017-07-29 18:48 | PDDCSUM ---
Discharge Summary Discharge Summary: DISCHARGE DIAGNOSES: -acute neurologic syndrome of uncertain etiology, consider Cho's palsy verses Guillain-[place] type demyelinating syndrome -acute severe headache, likely due to her neurologic syndrome but likely aggravated by IV gammaglobulin treatment -gait instability, multifactorial -type 2 diabetes mellitus chronic, CONSULTANTS: Dr. Rodriguez Palm of Neurology PROCEDURES: CT scans of the head with long with CT angio of head and neck MR brain MRI of lumbar spine HOSPITAL COURSE SUMMARY: This patient presented to the hospital with acute right-sided asymmetric facial weakness suggestive of a Cho's palsy, associated with a headache. However at presentation there were also some features that suggested the possibility of an acute demyelinating polyneuropathy such as the atypical Guillain-[place] type syndrome. Primarily this consisted of some bilateral lower extremity weakness. There was some hyper reflexia but the weakness as presented by the patient was not really reliably present on examination so it is not entirely certain how much true weakness there was. Imaging studies including CTs and MRI were unrevealing although there was possibility of a auditory schwannoma that was felt to be unrelated. A lumbar puncture was performed and there was no particular evidence of infection or other specific abnormalities noted. Tests have been sent for possible myasthenia gravis and these are pending at this time. The patient was admitted to the hospital where she received a 5 day course of IVIG. She has completed this course with no complications. In terms of her clinical syndrome there has been little change management manager time. Her asymmetric facial weakness is unchanged, she still does complain of a week sensation in her legs but she is walking and neither by symptoms are examination has this appeared to worsen over time. At this point she is felt clinically stable and not requiring any further specific medical therapies directed at her neurologic syndrome, but will need close follow-up. The patient does have some gait instability here. She does have some chronic foot issues that probably affect this, however she seems to have some mild instability of balance and also is having trouble with some photophobia related to her headache and so does not open her eyes well when walking. She has been assessed by Physical occupational therapist here who at this point feel that she is somewhat unstable and they are recommending ongoing physical therapy and occupational therapy in the residential facility or similar setting. At this point the patient is ambulating in the hallways independently, has not fallen, and she is unwilling to consider residential facility care or to stay longer for therapies here. She is aware of her gait instability issues and the risk of falling. I have reviewed this with her in detail today with a spray crew present. The patient does have a cane at home and I recommended she use this and she is agreeable to using her cane at home. PENDING TEST RESULTS: Myasthenia gravis related serologies MEDICATION CHANGES: Addition of gabapentin 300 mg three times daily FOLLOW-UP PLAN: With Dr. Rodriguez aPlm out in neurology clinic She is also to make an appointment with her primary care physician in 1-2 weeks Greater than 35 minutes bedside and care coordination time today
== END 2017-07-29 19:40 | disposition home or self-care (01) | DRG 49 ==
LOC: F3N 14:22 → OBSVTOIN 17:33 → F2N 17:52
PROVIDERS: ADMIT Internal Medicine; ATTEND Internal Medicine
PROC: 009U3ZX Drainage of Spinal Canal, Percutaneous Approach, Diagnostic (ICD-10-PCS; principal; 2017-07-25)
DX: G61.0 Guillain-Barre syndrome (principal); E11.65 Type 2 diabetes mellitus with hyperglycemia; G51.0 Bell's palsy; R51 Headache; T50.Z15A Adverse effect of immunoglobulin, initial encounter; R29.2 Abnormal reflex; R26.9 Unspecified abnormalities of gait and mobility; I10 Essential (primary) hypertension; E78.5 Hyperlipidemia, unspecified; E03.9 Hypothyroidism, unspecified; R13.10 Dysphagia, unspecified; D50.9 Iron deficiency anemia, unspecified; Z79.4 Long term (current) use of insulin
CPT/HCPCS: 82784-90; 84445-90; 84481-90; 86618-90; 87529-90; 87798-90; 92526-GN; 92610-GN; 97110-GP; 97112-GO; 97162-GP; 97166-GO; 97530-GO; 97530-GP; 97535-GO; A9585; J1170; J1200; J1459; J1650; J1815; J1885; J2405; Q9967

== ENCOUNTER → 2017-12-04 | Outpatient (CLI) | payer MEDICAID | LOC: CIMAGING 19:24 | PROVIDERS: ATTEND Internal Medicine | DX: M25.521 Pain in right elbow (principal) | CPT/HCPCS: 73070-PO ==